=== PATIENT | male | born 1960 | race Caucasian/White ===

== ENCOUNTER 2016-09-26 10:56 | Emergency (ER) | payer MEDICAID ==
--- NOTE | 2016-09-26 11:34 | CPEKG ---
Heart Rate: 71 RR Interval: 845 P-R Interval: 156 QRSD Interval: 96 QT Interval: 412 QTC Interval: 448 P [place]: 56 QRS [place]: 5 T Wave [place]: 36 EKG Severity - BORDERLINE ECG - EKG Impression: SINUS RHYTHM Electronically Signed By: Madhu Reyes 26-Sep-2016 13:18:40
[2016-09-26 12:27] LABS: % IMMATURE GRANULYOCYTES 0.2 % (0.0-1.1); ABSOLUTE IMMATURE GRANULOCYTES 0.01 10^3/uL (0.00-0.10); ADD DIFF? NO; ADD MORPH? NO; ADD SCAN? NO; ATYPICAL LYMPHOCYTE FLAG 0 (0-99); FRAGMENT RBC FLAG 0 (0-99); HEMATOCRIT 48.1 % (40.0-51.0); HEMOGLOBIN 16.3 g/dL (13.7-17.5); LEFT SHIFT FLG 0 (0-99); LIPEMIA HEMOLYSIS FLAG 90 (0-99); MEAN CELL HEMOGLOBIN 29.7 pg (27.9-34.1); MEAN CELL HEMOGLOBIN CONCENTR. 33.9 g/dL (32.4-36.7); MEAN CELL VOLUME 87.8 fL (81.5-99.8); MEAN PLATELET VOLUME 11.3 fL (8.7-11.7); PLATELET CLUMPS FLAG 0 (0-99); PLATELET COUNT 196 10^3/uL (150-400); RED BLOOD CELL COUNT 5.48 10^6/uL (4.40-6.38); RED CELL DISTRIBUTION WIDTH 12.7 % (11.5-15.2)
[2016-09-26 12:33] LABS: ALANINE AMINOTRANSFERASE 27 IU/L (21-72); ALKALINE PHOSPHATASE 56 IU/L (38-126); ANION GAP 11 mEq/L (8-16); ASPARTATE AMINOTRANSFERASE 26 IU/L (17-59); BILIRUBIN,TOTAL 0.9 mg/dL (0.1-1.4); CARBON DIOXIDE 30 mEq/l (22-31); CHLORIDE 100 mEq/L (97-110); CREATININE 0.8 mg/dL (0.7-1.3); GLOMERULAR FILTRATION RATE > 60; GLUCOSE 96 mg/dL (70-100); POTASSIUM 3.9 mEq/L (3.5-5.2); SODIUM 141 mEq/L (134-144); TOTAL PROTEIN 7.7 g/dL (6.3-8.2)
[2016-09-26 12:42] VITALS: RESP 16
[2016-09-26 12:44] LABS: TROPONIN I < 0.012 ng/mL (0-0.034)
--- NOTE | 2016-09-26 12:53 | EDPHY ---
H & P Stated Complaint: Lump behind R ear, feels dizzy w/near syncope over 1 wk Time Seen by Provider: 09/26/16 12:26 HPI/ROS: CHIEF COMPLAINT: Multiple complaints-1. Lump behind right ear 2. Intermittent dizziness 3. Right foot pain HISTORY OF PRESENT ILLNESS: The patient presents to the ED for evaluation of multiple symptoms. The patient has not seen a primary care provider in years. The patient denies taking any medications or having any known pre-existing medical conditions. The patient is concerned as he has recently noticed a small lump behind his right ear. The patient also has had some pain in his right foot since somebody stepped on it several days ago. The patient has had some intermittent symptoms of presyncope which have been present for years. The patient reports that prior to falling out of a relationship with a primary care provider he did have some medical evaluation of his presyncope which was negative. The patient denies any active chest pain. He denies melena. He denies fever, cough congestion. The patient denies headache, he denies focal numbness, weakness or additional complaints. REVIEW OF SYSTEMS: A comprehensive 10 point review of systems is otherwise negative aside from elements mentioned in the history of present illness. Source: Patient Exam Limitations: No limitations - Personal History Current Tetanus Diphtheria and Acellular Pertussis (TDAP): No - Medical/Surgical History Other PMH: healthy - Social History Smoking Status: Never smoked - Physical Exam Exam: General Appearance: Alert, no distress Eyes: Pupils equal and round no pallor or injection ENT, Mouth: Mucous membranes moist, small less than 1 cm palpable lump behind right ear which appears to be most consistent with a lymph node Respiratory: There are no retractions, lungs are clear to auscultation Cardiovascular: Regular rate and rhythm Gastrointestinal: Abdomen is soft and nontender, no masses, bowel sounds normal Neurological: A&O, normal motor function, normal sensory exam, normal cranial nerves Skin: Warm and dry, no rashes Musculoskeletal: Neck is supple nontender Extremities: Tenderness to palpation over right 1st MTP joint Constitutional: Initial Vital Signs Temperature (C) 36.6 C 09/26/16 11:00 Heart Rate 96 09/26/16 11:00 Respiratory Rate 18 09/26/16 11:00 Blood Pressure 114/94 H 09/26/16 11:00 O2 Sat (%) 96 09/26/16 11:00 O2 Delivery Mode Room Air Allergies/Adverse Reactions: No Known Allergies Allergy (Unverified 09/26/16 11:05) Home Medications: Medication Instructions Recorded NK [No Known Home Meds] 09/26/16 Medical Decision Making - Diagnostics EKG Interpretation: EKG: Complete interpretation has been separately recorded in the [facility] archive. Summary impression: Sinus rhythm, no ischemic changes Imaging Results: Imaging Impressions Foot X-Ray 09/26/16 12:30 Impression: 1. No acute osseous abnormality seen about the right foot. 2. Moderate degenerative changes first MTP joint. 3. Moderate calcaneal spurs. 4. Arteriosclerotic vascular calcifications noted. Rule out underlying diabetes. ED Course/Re-evaluation: The patient presents to the ED for evaluation of multiple complaints. The patient has a small noninfected lymph node behind his right ear without evidence of cellulitis or abscess. The patient also complained of pain in his right foot but had no obvious fracture noted on his x-ray today. The patient has had some intermittent bouts of presyncope. He has no evidence of an arrhythmia, murmur, fever or evidence of a acute metabolic condition. Differential Diagnosis: Differential diagnosis considered includes cellulitis, abscess, lymphadenopathy , arrhythmia, metabolic abnormality, fracture - Data Points Laboratory Results: Laboratory Results 09/26/16 11:15 09/26/16 11:15 09/26/16 09/26/16 11:15 11:15 WBC 6.19 10^3/uL 10^3/uL (3.80-9.50) RBC 5.48 10^6/uL 10^6/uL (4.40-6.38) Hgb 16.3 g/dL g/dL (13.7-17.5) Hct 48.1 % % (40.0-51.0) MCV 87.8 fL fL (81.5-99.8) MCH 29.7 pg pg (27.9-34.1) MCHC 33.9 g/dL g/dL (32.4-36.7) RDW 12.7 % % (11.5-15.2) Plt Count 196 10^3/uL 10^3/uL (150-400) MPV 11.3 fL fL (8.7-11.7) Neut % (Auto) 61.8 % % (39.3-74.2) Lymph % (Auto) 23.1 % % (15.0-45.0) [place] % (Auto) 12.9 % % (4.5-13.0) Eos % (Auto) 1.5 % % (0.6-7.6) Baso % (Auto) 0.5 % % (0.3-1.7) Nucleat RBC Rel Count 0.0 % % (0.0-0.2) Absolute Neuts (auto) 3.83 10^3/uL 10^3/uL (1.70-6.50) Absolute Lymphs (auto) 1.43 10^3/uL 10^3/uL (1.00-3.00) Absolute Monos (auto) 0.80 10^3/uL 10^3/uL (0.30-0.80) Absolute Eos (auto) 0.09 10^3/uL 10^3/uL (0.03-0.40) Absolute Basos (auto) 0.03 10^3/uL 10^3/uL (0.02-0.10) Absolute Nucleated RBC 0.00 10^3/uL 10^3/uL (0-0.01) Immature Gran % 0.2 % % (0.0-1.1) Immature Gran # 0.01 10^3/uL 10^3/uL (0.00-0.10) Sodium 141 mEq/L mEq/L (134-144) Potassium 3.9 mEq/L mEq/L (3.5-5.2) Chloride 100 mEq/L mEq/L (97-110) Carbon Dioxide 30 mEq/l mEq/l (22-31) Anion Gap 11 mEq/L mEq/L (8-16) BUN 7 mg/dL mg/dL (7-23) Creatinine 0.8 mg/dL mg/dL (0.7-1.3) Estimated GFR > 60 Glucose 96 mg/dL mg/dL (70-100) Calcium 9.0 mg/dL mg/dL (8.5-10.4) Total Bilirubin 0.9 mg/dL mg/dL (0.1-1.4) AST 26 IU/L IU/L (17-59) ALT 27 IU/L IU/L (21-72) Alkaline Phosphatase 56 IU/L IU/L (38-126) Troponin I < 0.012 ng/mL ng/mL (0-0.034) Total Protein 7.7 g/dL g/dL (6.3-8.2) Albumin 4.0 g/dL g/dL (3.5-5.0) Departure - Departure Disposition: Home, Routine, Self-Care Clinical Impression: Posterior auricular lymphadenopathy, Right foot pain, Pre-syncope Condition: Good Instructions: Near Syncope (ED) Additional Instructions: 1. Please schedule a follow-up appointment to establish primary care with the [facility]. 2. Your laboratory testing an EKG looked normal in the ED today. 3. Please follow up with the Ear Nose Throat specialist, Dr. Jordan Romeo, for a recheck of the lump behind your next ear in the next 1-2 months. Referrals: [facility],. [Clinic] - As per Instructions Jordan Romeo MD [Medical Doctor] - As per Instructions
[2016-09-26 13:39] VITALS: BP 138/76; PULSE 81; TEMP 97.7; O2SAT 98
== END 2016-09-26 13:39 | disposition home or self-care (01) ==
DX: R55 Syncope and collapse (principal); R59.1 Generalized enlarged lymph nodes; M79.671 Pain in right foot

== ENCOUNTER 2018-11-04 14:10 | Emergency (ER) | payer MEDICAID | END 2018-11-04 16:23 | disposition home or self-care (01) ==

== ENCOUNTER 2018-11-06 12:30 | Observation (INO) | payer BC | END 2018-11-07 14:00 | disposition home or self-care (01) | LOC: F2W 14:10 ==

== ENCOUNTER → 2018-11-18 | Outpatient (CLI) | payer BC | LOC: FIMAGING 11:45 ==